=== PATIENT | male | born 1985 | race Caucasian/White ===

== ENCOUNTER 2023-11-02 14:17 | Day surgery (SDC) | payer BC ==
[~2023-11-02] VITALS: Ht 175.3 cm; Wt 88.1 kg
[2023-11-02] VITALS (12 sets, daily range): BP systolic 109–135; BP diastolic 70–107; PULSE 82–124; RESP 10–17; TEMP 97.7; O2SAT 95–99
[~2023-11-02 14:17] MED LIST: COR3.125T PO; DIGO-20 MT; LISI2.5T49 PO; NORCO10T PO
[2023-11-02] MEDS ORDERED: LISI5TAB22 PO (15:07)
[2023-11-02] MEDS ORDERED: FURO20TA4 PO (15:07)
[2023-11-02] MEDS ORDERED: CARV-50 PO (15:07)
[2023-11-02] MEDS ORDERED: APIX5TAB3 PO (15:07)
[2023-11-02] MEDS: normal saline 1000ml 1,000 ML IV SCH (15:43)
[2023-11-02] MEDS: fentaNYL/PF 50MCG/1 ML 2ML syringe IV ONE (15:43)
[2023-11-02] MEDS: MIDAZolam 1mg/ml 10ml vial IV ONE (15:43)
== END 2023-11-02 16:55 | disposition home or self-care (01) ==
LOC: SSTAY O 14:17
PROVIDERS: ATTEND Student in an Organized Health Care Education/Training Program
DX: I48.0 Paroxysmal atrial fibrillation (principal); I50.9 Heart failure, unspecified; I34.0 Nonrheumatic mitral (valve) insufficiency; F43.10 Post-traumatic stress disorder, unspecified; Z79.01 Long term (current) use of anticoagulants; Z79.82 Long term (current) use of aspirin; Z79.899 Other long term (current) drug therapy
CPT/HCPCS: 92960; 93005; 93312; 93325; J2250; J3010; J7030; A4620

== ENCOUNTER 2024-02-01 11:01 | Day surgery (SDC) | payer BC ==
[~2024-02-01] VITALS: Ht 175.3 cm; Wt 88.4 kg
[2024-02-01] VITALS (7 sets, daily range): BP systolic 95–112; BP diastolic 51–63; PULSE 60–86; RESP 10–12; TEMP 98.2; O2SAT 94–99
[~2024-02-01 11:01] MED LIST changes: +APIX5TAB3 PO; +CARV-50 PO; -COR3.125T PO; -DIGO-20 MT; +FURO20TA4 PO; -LISI2.5T49 PO; +LISI5TAB22 PO
[2024-02-01] MEDS: normal saline 1000ml 1,000 ML IV SCH (11:30)
[2024-02-01] MEDS ORDERED: AMI200T PO (11:41)
[2024-02-01] MEDS ORDERED: SACU1TAB PO (11:41)
[2024-02-01] MEDS ORDERED: TEST200V33 IM (11:42)
[2024-02-01 12:02] LABS: BASOPHILS # (AUTO) 0.1 X10'3 (0-0.2); BASOPHILS % (AUTO) 0.9 % (0-1); EOSINOPHILS # (AUTO) 0.1 X10'3 (0-0.9); HEMATOCRIT 53.5 % (42.0-52.0); LYMPHOCYTES # (AUTO) 2.6 X10'3 (1.1-4.8); LYMPHOCYTES % (AUTO) 35.4 % (21-51); MEAN CORPUSCULAR HEMOGLOBIN 32.7 PG (27.0-31.0); MEAN CORPUSCULAR VOLUME 96.1 FL (78-98); MONOCYTES # (AUTO) 0.6 X10'3 (0-0.9); MONOCYTES % (AUTO) 7.8 % (2-12); NEUTROPHILS # (AUTO) 4.1 X10'3 (1.8-7.7); NEUTROPHILS % (AUTO) 54.9 % (42-75); PLATELET COUNT 286 X10'3 (140-440); RED BLOOD COUNT 5.57 X10'6 (4.70-6.10); RED CELL DISTRIBUTION WIDTH 14.8 % (11.5-14.5); WHITE BLOOD COUNT 7.5 X10'3 (4.5-11.0)
[2024-02-01 12:05] LABS: HEMOGLOBIN 18.2 g/dl (14.0-17.9)
[2024-02-01 12:19] LABS: APTT 32 SECONDS (22-32); INR 1.2 INR; PROTHROMBIN TIME 12.3 SECONDS (9.0-12.0)
[2024-02-01 12:20] LABS: ALBUMIN 3.9 G/DL (3.4-5.0); ANION GAP 9 (8-16); BLOOD UREA NITROGEN 12 MG/DL (7-18); BUN/CREATININE RATIO 10.1 (10.0-20.0); CALCIUM 8.4 MG/DL (8.5-10.1); CHLORIDE 109 MMOL/L (99-107); CHOL/HDL RATIO 3.6 (0.00-4.99); CHOLESTEROL 151 MG/DL (0-200); CREATININE 1.19 MG/DL (0.60-1.10); GLUCOSE 94 MG/DL (70-104); HDL CHOLESTEROL 42 MG/DL (35-60); LDL CHOLESTEROL 99 MG/DL (50-100); POTASSIUM 3.8 MMOL/L (3.5-5.1); SODIUM 139 MMOL/L (135-145); TOTAL CARBON DIOXIDE 21.3 MMOL/L (24-32); TRIGLYCERIDES 49 MG/DL (20-135); eCRCL 84 ML/MIN; eGFR 68 ML/MIN
[2024-02-01] MEDS: MIDAZolam 1mg/ml 10ml vial IV ONE (13:01)
[2024-02-01] MEDS: fentaNYL/PF 50MCG/1 ML 2ML syringe IV ONE (13:01)
== END 2024-02-01 13:38 | disposition home or self-care (01) ==
LOC: SSTAY O 11:01
PROVIDERS: ATTEND Student in an Organized Health Care Education/Training Program
DX: I48.0 Paroxysmal atrial fibrillation (principal); I50.9 Heart failure, unspecified; F43.10 Post-traumatic stress disorder, unspecified; I42.0 Dilated cardiomyopathy; Z79.01 Long term (current) use of anticoagulants; Z79.899 Other long term (current) drug therapy
CPT/HCPCS: 36415; 80048; 80061; 85025; 85610; 85730; 92960; J2250; J3010; J7030